=== PATIENT | male | born 1940 | race Caucasian/White ===

== ENCOUNTER → 2016-06-23 | Outpatient (CLI) | payer MEDICARE ==
[~2016-06-23] MED LIST: ACEB200C; AMLO10; CLOP75; FINA5TAB77 PO; HYDR12.56; LOTE20TA; MEVA40TA6; PROSCAP2 OR; PROSCAP5 OR; TAB-TAB; TAMS0.4C67 PO
[2016-06-28 19:54] LABS: CRYOCRIT NONE DETECTED (NONE DETECTED)
== END ==
LOC: CLAB 06-22 10:04
PROVIDERS: ATTEND Internal Medicine Nephrology
DX: N03.9 Chronic nephritic syndrome with unspecified morphologic changes (principal); R80.9 Proteinuria, unspecified
CPT/HCPCS: 36415; 82595